=== PATIENT | male | born 1955 | race Caucasian/White ===

== ENCOUNTER 2018-03-07 20:07 | Emergency (ER) | payer OTHER ==
[~2018-03-07] VITALS: Ht 185.4 cm; Wt 117.9 kg
[~2018-03-07 20:07] MED LIST: PRILOSEC40 MG PO
[2018-03-07 21:14] VITALS: BP 126/66
== END 2018-03-07 21:14 | disposition home or self-care (01) ==
LOC: M.ERS 20:07
DX: T16.1XXA Foreign body in right ear, initial encounter (principal); K21.9 Gastro-esophageal reflux disease without esophagitis; X58.XXXA Exposure to other specified factors, initial encounter; Y93.89 Activity, other specified; Y92.89 Other specified places as the place of occurrence of the external cause; Y99.8 Other external cause status

== ENCOUNTER → 2021-03-02 | Outpatient (CLI) | payer OTHER | LOC: M.CT 14:00 | PROVIDERS: ATTEND Nurse Practitioner Family | DX: Z13.6 Encounter for screening for cardiovascular disorders (principal); I25.10 Atherosclerotic heart disease of native coronary artery without angina pectoris ==